=== PATIENT | male | born 1955 ===

== ENCOUNTER 2024-09-12 14:43 | Emergency (ER) | payer MEDICARE, SELFPAY ==
[2024-09-12 14:53] VITALS: BP 135/85; PULSE 96; RESP 18; TEMP 37; O2SAT 94
--- NOTE | 2024-09-12 14:56 | ED_ITS ---
HPI - Dental/Oral General Chief complaint: Dental/Oral <Jane Gonsalves NP - Last Filed: 09/12/24 14:57> Stated complaint: Dental/Oral <Jane Gonsalves NP - Last Filed: 09/12/24 14:57> Time Seen by Provider: 09/12/24 14:56 <Jane Gonsalves NP - Last Filed: 09/12/24 14:57> Mode of arrival: ambulatory <Jane Gonsalves NP - Last Filed: 09/12/24 14:57> Limitations: no limitations <Jane Gonsalves NP - Last Filed: 09/12/24 14:57> History of Present Illness HPI Narrative: Patient presents today complaining of left upper dental pain that started yesterday with left upper jaw swelling that started approximately 6 hours prior to arrival. Currently rates his pain 2/10 after taking a dose of aspirin the provided some mild relief. Denies shortness of breath, difficulty swallowing, trismus. He does not currently have a dentist. <Suzette Gilliam, [employer], BC - Last Filed: 09/12/24 15:05> MD Complaint: tooth pain <Jane Gonsalves NP - Last Filed: 09/12/24 14:57> Related Data Allergies/adverse reactions: Allergies Allergy/AdvReac Type Severity Reaction Status Date / Time No Known Allergies Allergy Mild Verified 09/12/24 14:46 <Jane Gosnalves NP - Last Filed: 09/12/24 14:57> Review of Systems Review of Systems: CONSTITUTIONAL: Denies malaise, chills, sweats, or fever. EYES: Denies visual changes ENT: Denies rhinorrhea, congestion, sinus pain, otalgia or sore throat. Reports dental pain CARDIOVASCULAR: Denies chest pain, palpitations RESPIRATORY: Denies cough or dyspnea. SKIN: Denies rash or itching. MUSCULOSKELETAL: Denies myalgia. NEUROLOGIC: Denies numbness, weakness, or headache. <Jane Gonsalves NP - Last Filed: 09/12/24 14:57> All systems reviewed & are unremarkable except as noted in HPI and below <Jane Gonsalves NP - Last Filed: 09/12/24 14:57> PMFSH Comments At time of signature, agree with nursing past medical, surgical, social and family history. There is no relevant family history pertinent to the presenting complaint <RONAK Al Last Filed: 09/12/24 14:57> Exam Narrative: GENERAL: Well-appearing, well-nourished, and in no acute distress. HEAD: Normocephalic, atraumatic. EYES: PERRLA, sclera clear ENT: Nares clear, turbinates pink, no rhinorrhea or epistaxis. Mucous membranes moist. TM pearly bucio with sharp light reflex bilaterally; no tragal tenderness. Oropharynx without erythema or lesions. Tonsils not enlarged and without exudate. Missing teeth, broken teeth, caries NECK: Supple. No lymphadenopathy. CHEST: No respiratory distress. Speaks in full sentences. HEART: Regular rate and rhythm. SKIN: Warm, dry, no visible rash. NEURO: Alert and oriented x3. PSYCH: Normal mood and affect <RONAK Al Last Filed: 09/12/24 14:57> Course Course Emergency Course: Patient is aware of diagnosis, understands and agrees to treatment plan. Anticipatory guidance given. Patient agrees to follow-up as directed and is aware of reasons to seek care at the emergency department. Portions of this record may have been created with voice recognition software <Jane Gonsalves NP - Last Filed: 09/12/24 14:57> Level of Care: Express Care Visit <RONAK Al Last Filed: 09/12/24 14:57> Vital Signs Vital signs: Vital Signs Temperature 98.6 F 09/12/24 14:53 Pulse Rate 96 09/12/24 14:53 Respiratory Rate 18 09/12/24 14:53 Blood Pressure 135/85 09/12/24 14:53 Pulse Oximetry 94 09/12/24 14:53 Oxygen Delivery Room Air 09/12/24 14:53 Temperature 98.6 F 09/12/24 14:53 Pulse Rate 96 09/12/24 14:53 Respiratory Rate 18 09/12/24 14:53 Blood Pressure 135/85 09/12/24 14:53 Pulse Oximetry 94 09/12/24 14:53 Oxygen Delivery Room Air 09/12/24 14:53 Reviewed. <Jane Gonsalves NP - Last Filed: 09/12/24 14:57> Vital Signs Temperature 98.6 F 09/12/24 14:53 Pulse Rate 96 09/12/24 14:53 Respiratory Rate 18 09/12/24 14:53 Blood Pressure 135/85 09/12/24 14:53 Pulse Oximetry 94 09/12/24 14:53 Oxygen Delivery Room Air 09/12/24 14:53 Temperature 98.6 F 09/12/24 14:53 Pulse Rate 96 09/12/24 14:53 Respiratory Rate 18 09/12/24 14:53 Blood Pressure 135/85 09/12/24 14:53 Pulse Oximetry 94 09/12/24 14:53 Oxygen Delivery Room Air 09/12/24 14:53 <ESTEPHANIE Trevino, - Last Filed: 09/12/24 15:05> MDM - Dental/Oral MDM Narrative Medical decision making narrative: I evaluated this in the [facility] care. History is obtained from patient who is an independent historian and physical exam was performed.? Available medical records were reviewed. ? Exam findings and relevant testing show no acute concerns or changes; patient is non-toxic appearing and is in no distress. Patients pain and complaint coupled with physical findings are consistant with dentalgia. There are no focal signs of space occupying lesions that are compromising to the airway; no dysphagia, odynophagia, dysphonia, or dyspnea. No uvular deviation or soft palate edema. Patient is non-toxic appearing. The floor of the mouth is soft with no signs of Rajiv's Angina; no induration below mandible, no neck pain. Patient is without trismus or drooling and able to swallow secretions. Patient is felt appropriate for discharge home with dental follow up. ? Differential diagnosis and treatment plan were discussed with the patient. Patient agrees with discussion and after shared medical decision making agrees with plan of care. All questions were answered to the patient's satisfaction. Patient is appropriate for outpatient treatment and follow-up. <Jane Gonsalves NP - Last Filed: 09/12/24 14:57> Differential Diagnosis Differential diagnosis: Likely gingival abscess, dental caries, toothache, dental abscess, fracture of tooth and aphthous ulcer <Jane Gonsalves NP - Last Filed: 09/12/24 14:57> Critical Care Time Critical Care Time Critical Care Time: No <Jane Gonsalves NP - Last Filed: 09/12/24 14:57> Discharge Plan Discharge Clinical Impression: Dental abscess <Jane Gonsalves NP - Last Filed: 09/12/24 14:57> Patient Disposition: Home <Jane Gonsalves NP - Last Filed: 09/12/24 14:57> Condition: Stable <Jane Gonsalves NP - Last Filed: 09/12/24 14:57> Instructions: Dental Abscess (ED) <Jane Gonsalves NP - Last Filed: 09/12/24 14:57> Additional Instructions: Please take the amoxicillin as prescribed until gone. Continue [id number] medication for pain and swelling. As discussed, if you develop a fever, difficulty breathing, swallowing, or opening or closing your mouth, or your facial swelling significantly worsens, please go to the ER immediately for further evaluation and treatment. Follow-up with a dentist as soon as possible for further evaluation. Your blood pressure was elevated above 120/80 today at Urgent Care. This puts you above the threshold for follow up. Please schedule a followup visit with your personal physician as soon as possible, for further evaluation and treatment. Even blood pressure exceeding 120/80 may indicate pre-hypertension. <Jane Gonsalves NP - Last Filed: 09/12/24 14:57> Patient Language: Portuguese <Jane Gonsalves NP - Last Filed: 09/12/24 14:57> Prescriptions: New amoxicillin 875 mg tablet 875 mg PO Q12H 10 Days Qty: 20 0RF <Jane Gonsalves NP - Last Filed: 09/12/24 14:57> Follow-up/Referrals: Eduar Singer MD [Primary Care Provider] - <Jane Gonsalves NP - Last Filed: 09/12/24 14:57> Time of Disposition: 15:02 <Jane Gonsalves NP - Last Filed: 09/12/24 14:57> 15:02 <ESTEBAN TrevinoP, - Last Filed: 09/12/24 15:05>
--- NOTE | 2024-09-12 15:14 | ED_ITS ---
HPI - Dental/Oral General Chief complaint: Dental/Oral Stated complaint: Dental/Oral Time Seen by Provider: 09/12/24 14:56 Source: patient and RN notes reviewed Mode of arrival: ambulatory Limitations: no limitations History of Present Illness HPI Narrative: Patient presents today complaining of left upper dental pain that started yesterday with swelling of the left upper jaw that started approximately 6 hours prior to arrival. He currently rates his pain 2/10 after taking some aspirin prior to arrival, which provided some mild relief. Denies shortness of breath, fever, difficulty swallowing, trismus. He does not currently have a dentist. Related Data Allergies Allergy/AdvReac Type Severity Reaction Status Date / Time No Known Allergies Allergy Mild Verified 09/12/24 14:46 Review of Systems Review of Systems: CONSTITUTIONAL: Denies body aches, fever, chills, or sweats. EYES: Denies visual changes, redness, or discharge. ENT: Denies rhinorrhea, congestion, sore throat, or otalgia.+ dental pain and facial swelling CARDIOVASCULAR: Denies chest pain, palpitations, or edema. RESPIRATORY: Denies cough or dyspnea. GASTROINTESTINAL: Denies abdominal pain, nausea, vomiting, or diarrhea. GENITOURINARY: Denies dysuria or hematuria. SKIN: Denies rash, itching, or wounds. MUSCULOSKELETAL: Denies back pain, joint pain, or myalgia. NEUROLOGIC: Denies headache, numbness, tingling, or weakness. PSYCH: Denies depression or anxiety. PMFSH Comments At time of signature, I have reviewed and agree with nursing past medical, surgical, social and family history unless otherwise noted. Please see nursing chart for further information. There is no relevant family history pertinent to the presenting complaint Exam Narrative: GENERAL: Well-appearing, well-nourished, and in no acute distress. HEAD: Normocephalic, atraumatic. EYES: EOMI. No redness or drainage. Conjunctivae normal. ENT: Mucous membranes pink and moist. Tenderness to tooth 14 with palpation. Some mild swelling and erythema of the gingiva but no obvious periapical abscess noted. Mild swelling of the left upper jaw with tenderness. No trismus. NECK: Normal AROM. CHEST: No respiratory distress. EXTREMITIES: Normal range of motion. No edema. SKIN: Warm, dry, no rash. Capillary refill normal. Normal skin turgor. NEURO: No focal deficits. Alert and oriented x3. Gait steady. PSYCH: Normal affect. No signs of depression or anxiety. Course Course Level of Care: Express Care Visit Vital Signs Vital signs: Vital Signs Temperature 98.6 F 09/12/24 14:53 Pulse Rate 96 09/12/24 14:53 Respiratory Rate 18 09/12/24 14:53 Blood Pressure 135/85 09/12/24 14:53 Pulse Oximetry 94 09/12/24 14:53 Oxygen Delivery Room Air 09/12/24 14:53 Temperature 98.6 F 09/12/24 14:53 Pulse Rate 96 09/12/24 14:53 Respiratory Rate 18 09/12/24 14:53 Blood Pressure 135/85 09/12/24 14:53 Pulse Oximetry 94 09/12/24 14:53 Oxygen Delivery Room Air 09/12/24 14:53 Reviewed MDM - Dental/Oral MDM Narrative Medical decision making narrative: Patient is a pleasant 68-year-old male with left upper dental pain and associated mild facial swelling. She will be started on a 10 day course of amoxicillin for presumed dental abscess with instructions to follow-up with a dentist as soon as possible. He has no shortness of breath, difficulty swallowing, or trismus to suggest symptoms that would refer him to the emergency department at this time to be evaluated for deep neck infection. Strict ED precautions given. Differential Diagnosis Differential diagnosis: Likely gingival abscess, dental caries, toothache, dental abscess and fracture of tooth Critical Care Time Critical Care Time Critical Care Time: No Discharge Plan Discharge Clinical Impression: Dental abscess Patient Disposition: Home Condition: Stable Instructions: Dental Abscess (ED) Additional Instructions: Please take the amoxicillin as prescribed until gone. Continue [id number] medication for pain and swelling. As discussed, if you develop a fever, difficulty breathing, swallowing, or opening or closing your mouth, or your facial swelling significantly worsens, please go to the ER immediately for further evaluation and treatment. Follow-up with a dentist as soon as possible for further evaluation. Your blood pressure was elevated above 120/80 today at Urgent Care. This puts you above the threshold for follow up. Please schedule a followup visit with your personal physician as soon as possible, for further evaluation and treatment. Even blood pressure exceeding 120/80 may indicate pre-hypertension. Patient Language: Micronesian Prescriptions: New amoxicillin 875 mg tablet 875 mg PO Q12H 10 Days Qty: 20 0RF Follow-up/Referrals: Eduar Singer MD [Primary Care Provider] - Time of Disposition: 15:02
== END 2024-09-12 15:03 | disposition home or self-care (01) ==
PROVIDERS: Emergency Provider Nurse Practitioner; PCP Family Medicine
DX: K04.7 Periapical abscess without sinus (principal)
CPT/HCPCS: 99203; G0463